=== PATIENT | male | born 1980 | race Caucasian/White ===

== ENCOUNTER 2021-01-03 22:12 | Emergency (ER) | payer BC ==
[~2021-01-03] VITALS: Ht 188 cm; Wt 63.5 kg
[2021-01-03 22:37] LABS: ABSOLUTE BASOPHILS 0.1 thou/uL (0.0-0.2); ABSOLUTE LYMPHOCYTES 2.7 thou/uL (0.8-5.3); ABSOLUTE MONOCYTES 1.1 thou/uL (0.0-1.2); ABSOLUTE NEUTROPHILS 5.2 thou/uL (1.6-8.1); EOSINOPHILS 0.3 %; HEMATOCRIT 38.6 % (42.0-52.0); HEMOGLOBIN 13.6 gm/dL (14.0-18.0); LYMPHOCYTES 30.1 %; MCHC 35.2 g/dL (28.0-37.0); MONOCYTES 11.6 %; MPV 7.5 fl. (7.2-11.1); NUCLEATED RBCS 0 /100WBC; PLATELET COUNT* 263 thou/uL (150-400); RBC 4.24 mil/uL (4.50-6.00); RDW-CV 12.1 % (10.5-14.5); WBC 9.1 thou/uL (4.0-11.0)
[2021-01-03 22:47] LABS: CALCIUM 9.3 mg/dL (8.5-10.1)
[2021-01-03 22:52] LABS: ALBUMIN 4.4 g/dL (3.4-5.0)
[2021-01-03 23:03] LABS: ALCOHOL < 10 mg/dL (<10); SALICYLATE < 2.8 mg/dL (2.8-20.0)
[2021-01-03 23:07] LABS: ACETAMINOPHEN < 2 ug/mL (10-30)
[2021-01-04 00:18] LABS: URINE BLOOD NEGATIVE (Negative); URINE CLARITY CLEAR; URINE COLOR YELLOW; URINE GLUCOSE-RANDOM NEGATIVE (Negative); URINE KETONES 2+ (Negative); URINE LEUKOCYTES-REFLEX NEGATIVE (Negative); URINE NITRITE-REFLEX NEGATIVE (Negative); URINE PROTEIN NEGATIVE (Negative); URINE SPECIFIC GRAVITY >= 1.030 (1.005-1.030); URINE UROBILINOGEN 0.2 E.U./dl (0.2-1.0)
[2021-01-04 00:30] LABS: URINE BILIRUBIN 1+ (Negative)
[2021-01-04 00:31] LABS: ICTOTEST (BILI CONFIRMATORY) Negative (Negative)
[2021-01-04 00:34] LABS: AMP/METHAMP Negative (Negative); BARBITURATES Negative (Negative); BENZODIAZEPINES Negative (Negative); COCAINE Negative (Negative); METHADONE Negative (Negative); OPIATES Negative (Negative); PCP Negative (Negative); THC POSITIVE (Negative)
--- NOTE | 2021-01-04 09:50 | EKG ---
[place] [address] ELECTROCARDIOGRAM REPORT Name: MARIAN ACUNA Room: [facility].#: [id number] Admission: 01/03/21 Attend Phys: Discharge: Date of : 80 Date of Service: 01/03/212215 Report #: [id number] THIS REPORT FOR: //name// [facility] ED Test Date: 2021-01-03 Test Time: 22:16:45 Pat Name: MARIAN ACUNA Department: Room: Gender: Band Leader: [place] : 1980 Requested By: Sarah Craven Order Number: [id number] MD: Joseph Grady Measurements Intervals [place] Rate: 64 P: 70 CA: 125 QRS: 61 QRSD: 102 T: 36 QT: 389 QTc: 402 Interpretive Statements Sinus rhythm No previous ECG available for comparison Electronically Signed On 01-04-2021 9:49:56 CDT by Joseph Grady [email or web address] <ELECTRONICALLY SIGNED> By: Joseph Grady MD, [facility] 01/04/21 0949 15 2216 Joseph Grady MD, FACC /EPI
[2021-01-04 18:28] VITALS: BP 114/68
== END 2021-01-04 18:28 | disposition still patient (30) ==
LOC: M.ERS 22:12
PROVIDERS: Emergency Medicine
DX: F23 Brief psychotic disorder (principal); Z20.822 Contact with and (suspected) exposure to COVID-19